=== PATIENT | male | born 1955 | race Caucasian/White ===

== ENCOUNTER 2019-04-25 09:55 | Emergency (ER) | payer OTHER ==
[2019-04-25] MEDS ORDERED: Lidocaine 1% PF 5 ML VIAL ONE (10:07)
--- NOTE | 2019-04-25 10:58 | CT ---
CT BRAIN WITHOUT CONTRAST: Date: 04/25/19 The ventricles are normal in size with no shift. No intracranial bleeding or extra-axial hematoma see n. No sign of mass, stroke, or edema. The skull appears intact. The visible paranasal sinuses and mas toid air cells are clear. IMPRESSION: No acute intracranial findings. POS: HOME
== END 2019-04-25 10:51 | disposition home or self-care (01) ==
LOC: BURERS 09:55
DX: S01.81XA Laceration without foreign body of other part of head, initial encounter (principal); S80.01XA Contusion of right knee, initial encounter; S50.02XA Contusion of left elbow, initial encounter; W11.XXXA Fall on and from ladder, initial encounter; Z79.899 Other long term (current) drug therapy
CPT/HCPCS: 12011; 70450; J2001